=== PATIENT | female | born 1980 | race Native Hawaiian/Other Pacific Islander ===

== ENCOUNTER 2019-02-08 11:11 | Outpatient (CLI) | payer BC | END 2019-02-08 21:40 | disposition home or self-care (01) | LOC: MRI 11:11 | DX: M54.5 Low back pain (principal); M79.7 Fibromyalgia ==

== ENCOUNTER 2019-03-18 08:45 | Emergency (ER) | payer BC ==
[~2019-03-18] VITALS: Ht 152.4 cm; Wt 100.2 kg
[2019-03-18] MEDS ORDERED: BUSPIRONE HYDRO15 MG PO (09:22)
[2019-03-18] MEDS ORDERED: NEURONTIN 100M100 MG PO (09:22)
[2019-03-18] MEDS ORDERED: TRAZODONE HYDRO50 MG PO (09:23)
[2019-03-18] MEDS ORDERED: TIZANIDINE HYDRO4 MG PO (09:23)
[2019-03-18] MEDS ORDERED: DULOXETINE HYDR60 MG PO (09:23)
[2019-03-18] MEDS ORDERED: MOBIC15 MG PO (09:24)
[2019-03-18] MEDS ORDERED: TOPAMAX25 MG PO (09:25)
[2019-03-18 09:40] VITALS: BP 136/87; TEMP 99
== END 2019-03-18 09:50 | disposition home or self-care (01) ==
LOC: ED 08:45
DX: R42 Dizziness and giddiness (principal); R07.89 Other chest pain; F41.9 Anxiety disorder, unspecified
CPT/HCPCS: 81025; 93005; 99283

== ENCOUNTER 2020-09-04 11:50 | Emergency (ER) | payer OTHER ==
[~2020-09-04] VITALS: Ht 154.9 cm; Wt 108.9 kg
[~2020-09-04 11:50] MED LIST: BUSPIRONE HYDRO15 MG PO; DULOXETINE HYDR60 MG PO; MOBIC15 MG PO; NEURONTIN 100M100 MG PO; TIZANIDINE HYDRO4 MG PO; TOPAMAX25 MG PO; TRAZODONE HYDRO50 MG PO
[2020-09-04 12:02] VITALS: BP 138/90; TEMP 98.5
[2020-09-04 12:23] LABS: PLATELET COUNT 382 K/uL (152-353)
[2020-09-04 12:35] LABS: POTASSIUM 3.7 mmol/L (3.6-5.2)
== END 2020-09-04 14:03 | disposition home or self-care (01) ==
LOC: ED 11:50
PROVIDERS: Hospitalist
DX: K52.89 Other specified noninfective gastroenteritis and colitis (principal); R19.7 Diarrhea, unspecified; R11.2 Nausea with vomiting, unspecified; Z03.818 Encounter for observation for suspected exposure to other biological agents ruled out
CPT/HCPCS: 80053; 81000; 81025; 82150; 83690; 85027; 87635; 96360; 96365; 96375; 99284; J2405; J3490; U0003

== ENCOUNTER 2020-12-15 09:56 | Outpatient (CLI) | payer OTHER | END 2020-12-15 22:55 | disposition home or self-care (01) | LOC: MRI 09:56 | PROVIDERS: ATTEND Optometrist | DX: H46.12 Retrobulbar neuritis, left eye (principal) | CPT/HCPCS: A9576 ==

== ENCOUNTER 2021-02-22 09:08 | Outpatient (CLI) | payer OTHER | END 2021-02-22 20:24 | disposition home or self-care (01) | LOC: LABW 09:08 | PROVIDERS: ATTEND Psychiatry & Neurology Neurology | DX: G35 Multiple sclerosis (principal) | CPT/HCPCS: 36415; 82784; 86255; 86705; 86706 ==

== ENCOUNTER 2021-03-01 11:34 | Outpatient (CLI) | payer OTHER | END 2021-03-01 22:38 | disposition home or self-care (01) | LOC: MAMMO 11:34 | PROVIDERS: ATTEND Psychiatry & Neurology Neurology | DX: Z12.31 Encounter for screening mammogram for malignant neoplasm of breast (principal); G35 Multiple sclerosis ==

== ENCOUNTER 2021-12-27 13:08 | Outpatient (CLI) | payer OTHER ==
[~2021-12-27] VITALS: Ht 154.9 cm; Wt 102.5 kg
--- NOTE | 2021-12-27 13:18 | NUR ---
PT AMBULATED WITH CANE TO ROOM 1128 FOR OP INFUSION. VS OBTAINED.
[2021-12-27 13:48] VITALS: BP 117/54; TEMP 98.4
[2021-12-27 17:36] LABS: PLATELET COUNT 251 K/uL (152-353)
[2021-12-27 17:42] LABS: POTASSIUM 3.7 mmol/L (3.6-5.2)
== END 2021-12-27 20:01 | disposition home or self-care (01) ==
LOC: INF 13:08
PROVIDERS: ATTEND Family Medicine
DX: G71.00 Muscular dystrophy, unspecified (principal); E86.0 Dehydration
CPT/HCPCS: 80053; 85027; 96360; 96361

== ENCOUNTER 2022-04-01 11:05 | Outpatient (CLI) | payer OTHER | END 2022-04-01 19:22 | disposition home or self-care (01) | LOC: RAD 11:05 | PROVIDERS: ATTEND Nurse Practitioner Family | DX: M79.642 Pain in left hand (principal); M25.532 Pain in left wrist ==

== ENCOUNTER 2022-04-08 11:56 | Outpatient (CLI) | payer OTHER ==
[2022-04-08 13:08] LABS: POTASSIUM 3.8 mmol/L (3.6-5.2)
== END 2022-04-08 20:33 | disposition home or self-care (01) ==
LOC: LABW 11:56 → RESP 11:56 → LABW 20:33
PROVIDERS: ATTEND Nurse Practitioner Primary Care
DX: R55 Syncope and collapse (principal); Z79.899 Other long term (current) drug therapy
CPT/HCPCS: 80053; 84443; 93005

== ENCOUNTER 2022-05-20 15:40 | Outpatient (CLI) | payer OTHER | END 2022-05-20 19:39 | disposition home or self-care (01) | LOC: LABW 15:40 | PROVIDERS: ATTEND Psychiatry & Neurology Neurology | DX: G35 Multiple sclerosis (principal) | CPT/HCPCS: 36415; 82784 ==

== ENCOUNTER 2022-09-13 08:58 | Outpatient (CLI) | payer OTHER | END 2022-09-13 18:52 | disposition home or self-care (01) | LOC: MAMMO 08:58 | PROVIDERS: ATTEND Psychiatry & Neurology Neurology | DX: Z12.31 Encounter for screening mammogram for malignant neoplasm of breast (principal); G35 Multiple sclerosis ==

== ENCOUNTER 2022-10-25 11:14 | Outpatient (CLI) | payer OTHER | END 2022-10-25 19:42 | disposition home or self-care (01) | LOC: LABW 11:14 | PROVIDERS: ATTEND Psychiatry & Neurology Neurology | DX: G35 Multiple sclerosis (principal) | CPT/HCPCS: 36415; 82784; 86317; 86704 ==